=== PATIENT | female | born 1995 | race Caucasian/White ===

== ENCOUNTER 2017-04-21 12:05 | Inpatient (IN) | payer BC ==
[~2017-04-21] VITALS: Ht 154.9 cm; Wt 53.5 kg
[2017-04-21 12:22] VITALS: BP 124/75
--- NOTE | 2017-04-21 14:30 | NUR ---
Patient ambulated to bed 6. RN evaluating patient at bedside.
--- NOTE | 2017-04-21 14:38 | NUR ---
PT BIB BOTHER WITH C/O RIGHT SIDED CP RADIATING TO THE BACK 06/01 NO TRAUMA; TOOK EXCEDRIN X 2 WITH SLIGHT RELIEF 01/30 SHARP;PT FEELS NAUSEATED BUT DENIE VOMITTING;SKIN IS PINK/WARM/DRY; AAOX4 WITH EVEN AND STEADY GAIT; LUNGS CLEAR BL; HR EVEN AND REGULAR; PT DENIES ANY FEVER, CP, SOB, OR COUGH AT THIS TIME; PATIENT STATES PAIN OF /10 AT THIS TIME;PATIENT POSITIONED FOR COMFORT; HOB ELEVATED; BEDRAILS UP X2; BED DOWN.
[2017-04-21 15:06] LABS: HEMATOCRIT 41.2 % (36-48); HEMOGLOBIN 13.6 g/dL (12.0-16.0); MEAN CORPUSCULAR HEMOGLOBIN 29 pg (27-31); MEAN CORPUSCULAR HGB CONC 33 g/dL (33-37); MEAN CORPUSCULAR VOLUME 89 fL (80-94); PLATELET COUNT (AUTO) 152 K/uL (140-450); RED BLOOD CELL COUNT(AUTO) 4.63 MIL/uL (4.20-5.40); RED CELL DISTRIBUTION WIDTH 11.9 % (11.6-13.7); WHITE BLOOD COUNT (AUTO) 15.8 K/uL (4.5-11.0)
[2017-04-21 15:10] LABS: ANION GAP 12.9 (8-16); CALCIUM 9.1 mg/dL (8.5-10.1); CARBON DIOXIDE 24.9 mmol/L (21-32); CREATININE 0.7 mg/dL (0.6-1.3); POTASSIUM 3.8 mmol/L (3.5-5.1)
[2017-04-21 15:16] LABS: ALBUMIN 4.5 g/dL (3.4-5.0); TOTAL BILIRUBIN 0.8 mg/dL (0.0-1.0); TOTAL PROTEIN, SERUM 8.8 g/dL (6.4-8.2)
[2017-04-21 15:20] LABS: BAND % (MANUAL) 15 % (0-8); LYMPHOCYTES % (MANUAL) 5 % (20-46); MONOCYTES % (MANUAL) 7 % (5-12); NEUTROPHILS % (MANUAL) 73 (43-65); PLATELET ESTIMATE ADEQUATE
[2017-04-21 15:21] LABS: INR 1.1 (0.8-1.2); PARTIAL THROMBOPLASTIN TIME 27.6 secs (22-35.6); PROTHROMBIN TIME 11.1 secs (10.8-13.4)
--- NOTE | 2017-04-21 15:24 | NUR ---
PT RESTING ON BED;NO ACUTE DISTRESS NOTED;WILL CONTINUE TO MONITOR PT.
[2017-04-21 15:41] LABS: D-DIMER < 100 ng/ml (0-400)
--- NOTE | 2017-04-21 16:32 | NUR ---
PT CRYING C/O BACK PAIN;POSITION PT TO COMFORTABLE POSITION;WILL NOTIFY ER MD.
[2017-04-21] MEDS ORDERED: KETOROLAC 30 MG/ML VIAL IVP ONE (16:35)
[2017-04-21 16:36] LABS: FREE T4 (FREE THYROXINE) 1.29 ng/dL (0.76-1.46); THYROID STIMULATING HORMONE 0.85 uIU/mL (0.34-3.74)
[2017-04-21] MEDS ORDERED: KETOROLAC 30 MG/ML VIAL ONE (16:42)
[2017-04-21] MEDS ORDERED: NACL 0.9% 2,000 ML IV ONE (16:45)
[2017-04-21] MEDS ORDERED: ONDANSETRON 4 MG/2 ML VIAL IVP PRN (16:55)
[2017-04-21] MEDS ORDERED: MORPHINE SULFATE 2 MG/ML SYR IVP PRN (16:55)
[2017-04-21] MEDS ORDERED: LORazepam 2 MG/ML VIAL IVP PRN (16:55)
--- NOTE | 2017-04-21 17:10 | NUR ---
WENT TO CT SCAN ACCOMPANIED BY TECH.
--- NOTE | 2017-04-21 17:20 | NUR ---
BACK FROM CT SCAN ACCOMPANIED BY ROSENDO.
[2017-04-21 17:30] LABS: APPEARANCE,URINE HAZY (CLEAR); BILIRUBIN,URINE NEGATIVE (NEGATIVE); BLOOD, URINE 2+ (NEGATIVE); COLOR,URINE YELLOW (YELLOW); LEUKOCYTE ESTERASE ,URINE NEGATIVE (NEGATIVE); NITRITE, URINE NEGATIVE (NEGATIVE); PROTEIN,URINE NEGATIVE (NEGATIVE); UGLUCOSE NEGATIVE (NEGATIVE)
[2017-04-21 17:36] LABS: AMPHETAMINE, URINE NEG. ng/ml (NEG <=1000); BARBITURATE, URINE NEG. ng/ml (NEG <=200); BENZODIAZEPINE, URINE NEG. ng/mL (NEG <=200); CANNABINOID, URINE POS. ng/mL (NEG <=50); COCAINE, URINE NEG. ng/mL (NEG <=300); OPIATE, URINE NEG. ng/mL (NEG <=2000); PHENCYCLIDINE SCREEN,URINE NEG. ng/mL (NEG <=25)
[2017-04-21 17:38] LABS: BACTERIA,URINE FEW /HPF (None Seen); WBC,URINE 0-3 /HPF (0-5)
[2017-04-21 17:39] LABS: MUCUS,URINE 2+ /LPF (None Seen)
--- NOTE | 2017-04-21 17:44 | NUR ---
Patient will be admitted to care of DR JORGENSEN. Admited to TELE. Will go to room 123 A. Belongings list completed. Report to SHMUEL TEJADA.
--- NOTE | 2017-04-21 18:00 | NUR ---
PT ON UNIT. NO S/S OF ACUTE DISTRESS. AAOX4. IV SITE PATENT AND INTACT. PT DENIES PAIN AT THIS TIME. FATHER AT BEDSIDE. SKIN INTACT. PT ORIENTED TO ROOM. CALL LIGHT WITHIN REACH. SAFETY MEASURES ENSURED. WILL CONTINUE TO MONITOR.
[2017-04-21 18:10] VITALS: BP 104/59
--- NOTE | 2017-04-21 19:28 | NUR ---
ENDORSED PLAN OF CARE TO NURSE AT PT BEDSIDE. NO S/S OF ACUTE DISTRESS NOTED.
--- NOTE | 2017-04-21 19:30 | NUR ---
RECEIVED PT AWAKE PRESENTLY EATING DINNER, TOLERATING WELL, VITAL SIGNS TAKEN, ST ON TELE, DENIES CHEST PAIN BUT COMPLAINING OF BACK PAIN, WILL MEDICATE PRN, PLAN OF CARE DISCUSSED, SAFETY MEASURES IN PLACE, FATHER AT BEDSIDE, CALL LIGHT WITHIN REACH.
[2017-04-21] MEDS: HYDROcodone/APAP 5/325 MG 1 TAB TAB PO PRN (19:51)
[2017-04-21 20:00] VITALS: BP 109/68
[2017-04-21] MEDS: SIMVASTATIN 10 MG TAB PO SCH (20:03)
[2017-04-21] MEDS: NACL 0.9% 500 ML IV SCH (20:05)
[2017-04-21 20:08] LABS: CHOL/HDL RATIO 2.4 (1-4.5)
--- NOTE | 2017-04-21 20:30 | NUR ---
IVF OF NS AT 50ML/H STARTED, DUE ZOCOR GIVEN WITH EDUCATION PROVIDED, ALL NEEDS ATTENDED.
[2017-04-21] MEDS: ACETAMINOPHEN 325 MG TAB PO PRN (23:40)
--- NOTE | 2017-04-21 23:40 | NUR ---
PT SLEEPING, EASILY AROUSABLE, VITAL SIGNS TAKEN, TEMP-100.3, ST ON TELE, DENIES CHEST PAIN, PAGED DR MUNOZ WITH NEW ORDERS, MEDICATED WITH TYLENOL PO, COOLING MEASURES INITIATED, CONTINUE TO MONITOR CLOSELY.
[2017-04-22] VITALS: BP 103/67
[2017-04-22 04:00] VITALS: BP 97/50
--- NOTE | 2017-04-22 04:30 | NUR ---
PT SLEEPING, EASILY AROUSABLE, VITAL SIGNS STABLE, TEMP-99.6, DENIES ANY BACK OR CHEST PAIN, COMPLAINING OF PAIN TO IV SITE, NEW IV LINE STARTED ON RT HAND GAUGE 22 WITH GOOD BLOOD RETURN, MONITORED CLOSELY.
[2017-04-22] MEDS: NACL 0.9% 500 ML IV SCH (05:10)
--- NOTE | 2017-04-22 06:30 | NUR ---
PT AWAKE USING HER CELL PHONE AT THIS TIME, NO SIGNS OF DISTRESS, DENIES ANY PAIN, IVF INFUSING WELL, MONITORED CLOSELY.
[2017-04-22] MEDS: ACETAMINOPHEN 325 MG TAB PO PRN ×3 (06:50→21:11)
--- NOTE | 2017-04-22 06:53 | NUR ---
TEMP RECHECKED WITH 100.7, DR KAPADIA MADE AWARE, TYLENOL PO GIVEN, MONITORED CLOSELY.
--- NOTE | 2017-04-22 07:08 | NUR ---
PATIENT HAS BEEN SCREENED AND CATEGORIZED MODERATE NUTRITION RISK. PATIENT WILL BE SEEN WITHIN 3-5 DAYS OF ADMISSION. 04/24/17-04/26/17 CHULA CUNNINGHAM MS, RDN
--- NOTE | 2017-04-22 07:25 | NUR ---
PT AWAKE, NO SIGNS OF DISTRESS, REPORT GIVEN TO RN CARLA FOR CONTINUITY OF CARE.
--- NOTE | 2017-04-22 07:30 | NUR ---
RECEIVED ON BED AAOX4. NO SOB NOTED. NO C/O PAIN AT THIS TIME. IV TO RT HAND PATENT AND INTACT. CHEST CLEAR. ABDOMEN SOFT, BOWEL SOUNDS RESENT. NO EDEMA NOTED. INSTRUCTED PT TO CALL FOR ASSISTANCE, CALL LIGHT WITHIN REACH. PT VERBALIZED UNDERSTANDING.
[2017-04-22 07:45] LABS: HEMATOCRIT 36.4 % (36-48); HEMOGLOBIN 12.2 g/dL (12.0-16.0); MEAN CORPUSCULAR HEMOGLOBIN 30 pg (27-31); MEAN CORPUSCULAR HGB CONC 34 g/dL (33-37); MEAN CORPUSCULAR VOLUME 90 fL (80-94); PLATELET COUNT (AUTO) 127 K/uL (140-450); RED BLOOD CELL COUNT(AUTO) 4.07 MIL/uL (4.20-5.40); RED CELL DISTRIBUTION WIDTH 12.2 % (11.6-13.7); WHITE BLOOD COUNT (AUTO) 15.8 K/uL (4.5-11.0)
[2017-04-22 07:56] LABS: ANION GAP 15.9 (8-16); CALCIUM 8.2 mg/dL (8.5-10.1); CARBON DIOXIDE 19.8 mmol/L (21-32); CREATININE 0.6 mg/dL (0.6-1.3); POTASSIUM 3.7 mmol/L (3.5-5.1)
[2017-04-22 08:00] VITALS: BP 98/54
[2017-04-22 08:00] LABS: MAGNESIUM 1.8 mg/dL (1.8-2.4); PHOSPHORUS 2.8 mg/dL (2.5-4.9)
[2017-04-22 08:59] LABS: BAND % (MANUAL) 7 % (0-8); LYMPHOCYTES % (MANUAL) 6 % (20-46); MONOCYTES % (MANUAL) 3 % (5-12); NEUTROPHILS % (MANUAL) 84 (43-65); PLATELET ESTIMATE SLIGHTLY DECREASED
[2017-04-22] MEDS: LISINOPRIL 5 MG TAB PO SCH (09:00)
[2017-04-22] MEDS: ASPIRIN 325 MG TABEC PO SCH ×2 (09:00→09:48)
[2017-04-22] MEDS: METOPROLOL 25 MG TAB PO SCH (09:49)
[2017-04-22] MEDS ORDERED: ECOTRIN 81 MG TABEC PO SCH (09:55)
--- NOTE | 2017-04-22 09:55 | NUR ---
PT AMBULATING TO THE BATHROOM WITH STANDBY ASSIST. ACTIVITY TOLERATED WELL.
[2017-04-22] MEDS: HYDROcodone/APAP 5/325 MG 1 TAB TAB PO PRN ×2 (11:41→19:41)
[2017-04-22 12:00] VITALS: BP 104/61
--- NOTE | 2017-04-22 12:00 | NUR ---
KEPT PT NPO FOR ULTRASOUND OF ABDOMEN AFTER 3PM TODAY. PT MADE AWARE, VERBALIZED UNDERSTANDING.
[2017-04-22] MEDS ORDERED: CALCIUM CARB 600 MG TAB PO SCH (12:55)
[2017-04-22] MEDS: NACL 0.9% 1,000 ML IV SCH ×2 (14:10→22:55)
[2017-04-22 16:00] VITALS: BP 99/60
--- NOTE | 2017-04-22 16:25 | NUR ---
ULTRASOUND OF ABDOMEN ON GOING AT THE BEDSIDE.
--- NOTE | 2017-04-22 19:10 | NUR ---
ECHO ON GOING AT THE BEDSIDE. PT STABLE. NO COMPLAINTS MADE. WILL ENDORSE TO NEXT SHIFT NURSE FOR CONTINUITY OF CARE.
--- NOTE | 2017-04-22 19:15 | NUR ---
RECEIVED PT ON BED, ECHO ON-GOING, NO SIGNS OF DISTRESS, WILL FOLLOW UP.
--- NOTE | 2017-04-22 19:41 | NUR ---
VITAL SIGNS STABLE, ST ON TELE, DENIES CHEST PAIN BUT COMPLAINING OF BACK PAIN, TEMP-100.3, MEDICATED PRN WITH NORCO, ENCOURAGE TO DRINK A LOT OF FLUIDS TOLERATED, COMPLIANT, COOLING MEASURES INITIATED, RESUMED IVF OF NS @ 100 ML/H, FATHER AT BEDSIDE, CALL LIGHT WITHIN REACH.
[2017-04-22 20:00] VITALS: BP 97/64
[2017-04-22] MEDS: SIMVASTATIN 10 MG TAB PO SCH (21:07)
--- NOTE | 2017-04-22 21:15 | NUR ---
TEMP RECHECKED-100.4, TYLENOL PO GIVEN, CONTINUE COOLING MEASURES, MONITORED CLOSELY.
[2017-04-23] VITALS: BP 95/51
--- NOTE | 2017-04-23 | NUR ---
PT SLEEPING, EASILY AROUSABLE, VITAL SIGNS TAKEN, BP ON THE LOW SIDE BUT STABLE, TEMP-99.4, DENIES ANY PAIN, IVF INFUSING WELL, CONTINUE TO MONITOR CLOSELY.
[2017-04-23] MEDS: ACETAMINOPHEN 325 MG TAB PO PRN (03:46)
[2017-04-23] MEDS: NACL 0.9% 1,000 ML IV SCH ×3 (03:48→17:20)
[2017-04-23 04:00] VITALS: BP 90/54
--- NOTE | 2017-04-23 04:00 | NUR ---
PT AWAKE, VITAL SIGNS TAKEN, TEMP-100.5, ST ON TELE-116, MEDICATED WITH TYLENOL PO, COOLING MEASURES DONE, MONITORED CLOSELY.
--- NOTE | 2017-04-23 05:30 | NUR ---
TEMP RECHECKED WITH 99.4, DENIES ANY PAIN, IVF INFUSING WELL, MONITORED CLOSELY.
--- NOTE | 2017-04-23 07:15 | NUR ---
PT AWAKE, NO SIGNS OF DISTRESS, REPORT GIVEN TO RN CARLA FOR CONTINUITY OF CARE.
[2017-04-23 07:20] LABS: HEMATOCRIT 33.5 % (36-48); HEMOGLOBIN 11.4 g/dL (12.0-16.0); MEAN CORPUSCULAR HEMOGLOBIN 30 pg (27-31); MEAN CORPUSCULAR HGB CONC 34 g/dL (33-37); MEAN CORPUSCULAR VOLUME 88 fL (80-94); PLATELET COUNT (AUTO) 118 K/uL (140-450); RED BLOOD CELL COUNT(AUTO) 3.82 MIL/uL (4.20-5.40); RED CELL DISTRIBUTION WIDTH 12.1 % (11.6-13.7); WHITE BLOOD COUNT (AUTO) 14.9 K/uL (4.5-11.0)
--- NOTE | 2017-04-23 07:30 | NUR ---
RECEIVED ON BED AAOX4. NO SOB NOTED. NO C/O PAIN AT THIS TIME. IV TO RT HAND PATENT AND INTACT. CHEST CLEAR. ABDOMEN SOFT, BOWEL SOUNDS PRESENT. NO EDEMA NOTED. INSTRUCTED PT TO CALL FOR ASSISTANCE, CALL LIGHT WITHIN REACH. PT VERBALIZED UNDERSTANDING.
[2017-04-23 07:44] LABS: ANION GAP 14.9 (8-16); CALCIUM 7.9 mg/dL (8.5-10.1); CARBON DIOXIDE 19.8 mmol/L (21-32); CREATININE 0.6 mg/dL (0.6-1.3); POTASSIUM 3.7 mmol/L (3.5-5.1)
[2017-04-23 08:00] VITALS: BP 101/65
[2017-04-23 08:23] LABS: BAND % (MANUAL) 13 % (0-8); LYMPHOCYTES % (MANUAL) 7 % (20-46); MONOCYTES % (MANUAL) 9 % (5-12); NEUTROPHILS % (MANUAL) 71 (43-65); PLATELET ESTIMATE ADEQUATE
--- NOTE | 2017-04-23 08:30 | NUR ---
PT C/O PAIN UPON SWALLOWING FOODAND WATER. NOTED WHITE SPOTS/AREAS AT THE BACK OF UVULA. DR. NEGRETE (RESIDENT) NOTIFIED.
[2017-04-23] MEDS: LISINOPRIL 5 MG TAB PO SCH (09:00)
--- NOTE | 2017-04-23 09:00 | NUR ---
PT FOR CT ABDOMEN, NPO STARTED ORDERED. PT VERBALIZED UNDERSTANDING.
[2017-04-23] MEDS: METOPROLOL 25 MG TAB PO SCH (09:19)
[2017-04-23] MEDS: ECOTRIN 81 MG TABEC PO SCH (09:20)
[2017-04-23 12:00] VITALS: BP 96/58
--- NOTE | 2017-04-23 12:00 | NUR ---
PT WHEELED TO CT DEPT IN STABLE CONDITION. NPO MAINTAINED.
[2017-04-23] MEDS: HYDROcodone/APAP 5/325 MG 1 TAB TAB PO PRN ×2 (13:54→23:38)
--- NOTE | 2017-04-23 14:45 | NUR ---
STREP THROAT SPECIMEN COLLECTED AND SENT TO LAB.
[2017-04-23 16:00] VITALS: BP 100/56
--- NOTE | 2017-04-23 18:00 | NUR ---
INSTRUCTED PT NPO POST MIDNIGHT FOR PLANNED PROCEDURE TOMORROW BY DR. OLIVO. PT AND FAMILY AT THE BEDSIDE VERBALIZED UNDERSTANDING. PT'S FATHER STATED THE PT WILL SIGN THE CONSENT TOMORROW MORNING WHEN DR. OLIVO COMES.
--- NOTE | 2017-04-23 19:10 | NUR ---
NOTIFIED DR. OLIVO REGARDING PT'S STREP THROAT POSITIVE RESULT. NEW ORDERS GIVEN. JENN RN FIRE PATROLLER MADE AWARE OF PLANNED SURGERY CANCELLED. PT AND PT'S FATHER AWARE, VERBALIZED UNDERSTANDING. ENDORSED TO NEXT SHIFT NURSE FOR CONTINUITY OF CARE.
--- NOTE | 2017-04-23 19:15 | NUR ---
RECEIVED PT AWAKE, VITAL SIGNS STABLE, AFEBRILE, DENIES ANY PAIN, NO DIFFICULTY BREATHING NOTED, PLAN OF CARE DISCUSSED, WILL RESUMED ON CLEAR LIQUID DIET, SAFETY MEASURES IN PLACE, CALL LIGHT WITHIN REACH.
[2017-04-23 20:00] VITALS: BP 96/58
[2017-04-23] MEDS: SIMVASTATIN 10 MG TAB PO SCH (20:34)
--- NOTE | 2017-04-23 21:12 | NUR ---
THROAT SWABBED AND SENT TO LAB FOR THROAT CULTURE, NO SOB NOTED, PT VERBALIZED ONLY HAVE THROAT DISCOMFORT WHEN SWALLOWING, MONITORED CLOSELY.
--- NOTE | 2017-04-23 23:44 | NUR ---
PT COMPLAINING OF BACK PAIN, VITAL SIGNS STABLE, TEMP-100.1, MEDICATED WITH NORCO, SLIGHT DISCOMFORT WHEN SWALLOWING BUT TOLERATED WELL, IVF INFUSING WELL, CONTINUE TO MONITOR CLOSELY.
[2017-04-24] VITALS: BP 107/69
[2017-04-24] MEDS: NACL 0.9% 1,000 ML IV SCH ×3 (01:20→11:15)
[2017-04-24 04:00] VITALS: BP 99/56
--- NOTE | 2017-04-24 04:00 | NUR ---
PT SLEEPING, EASILY AROUSABLE, VITAL SIGNS STABLE, AFEBRILE, DENIES ANY PAIN, NO DIFFICULTY OF BREATHING NOTED, IVF INFUSING WELL, MONITORED CLOSELY.
--- NOTE | 2017-04-24 06:00 | NUR ---
PT SLEEPING, NO SIGNS OF DISTRESS, IVF INFUSING WELL, MONITORED CLOSELY.
[2017-04-24 06:06] LABS: BASOPHILS # (AUTO) 0.1 K/uL (0.00-0.22); BASOPHILS % (AUTO) 0.9 % (0.0-2.0); EOSINOPHILS # (AUTO) 0.2 K/uL (0-0.4); EOSINOPHILS % (AUTO) 1.6 % (0.0-4.0); HEMATOCRIT 33.2 % (36-48); HEMOGLOBIN 11.4 g/dL (12.0-16.0); LYMPHOCYTES % (AUTO) 17.4 % (20.5-51.1); MEAN CORPUSCULAR HEMOGLOBIN 30 pg (27-31); MEAN CORPUSCULAR HGB CONC 34 g/dL (33-37); MEAN CORPUSCULAR VOLUME 88 fL (80-94); MONOCYTES # (AUTO) 1.4 K/uL (0.8-1.0); MONOCYTES % (AUTO) 12.1 % (1.7-9.3); NEUTROPHILS # (AUTO) 7.9 K/uL (1.8-7.7); PLATELET COUNT (AUTO) 125 K/uL (140-450); RED BLOOD CELL COUNT(AUTO) 3.77 MIL/uL (4.20-5.40); RED CELL DISTRIBUTION WIDTH 11.8 % (11.6-13.7); WHITE BLOOD COUNT (AUTO) 11.6 K/uL (4.5-11.0)
[2017-04-24 06:28] LABS: ANION GAP 15.8 (8-16); CALCIUM 8.1 mg/dL (8.5-10.1); CARBON DIOXIDE 21.1 mmol/L (21-32); CREATININE 0.6 mg/dL (0.6-1.3); POTASSIUM 3.9 mmol/L (3.5-5.1)
--- NOTE | 2017-04-24 07:25 | NUR ---
PT AWAKE, NO SIGNS OF DISTRESS, REPORT GIVEN TO RN KATIANA FOR CONTINUITY OF CARE.
--- NOTE | 2017-04-24 07:30 | NUR ---
REPORT RECEIVED FROM GETTER OPERATOR, PT SLEEPING QUIETLY, RESP EVEN UNLABORED ON ROOM AIR IN NAD, SKIN COLOR WNL, PT AROUSES EASILY TO VOICE, DENIES PAIN OR ANY IMMEDIATE NEEDS, PLAN OF CARE DISCUSSED, CALL WAYNE WITHIN REACH, SIDE RAILS UP, BED LOCKED IN LOW POSITION, WILL CONTINUE TO MONITOR.
[2017-04-24 08:00] VITALS: BP 94/54
--- NOTE | 2017-04-24 08:00 | NUR ---
GLUCOSE 73 PER AM LABS, APPLE JUICE GIVEN PT DRINKING WITHOUT PROBLEM. WILL RECHECK BLOOD SUGAR.
[2017-04-24] MEDS: ECOTRIN 81 MG TABEC PO SCH (08:34)
[2017-04-24] MEDS: HYDROcodone/APAP 5/325 MG 1 TAB TAB PO PRN (08:38)
--- NOTE | 2017-04-24 08:42 | NUR ---
FINGER STICK GLUCOSE 102 NOW, PT ENCOURAGED TO DRINK THROUGH OUT THE DAY, WILL CONTINUE TO MONTIOR
[2017-04-24] MEDS: METOPROLOL 25 MG TAB PO SCH (08:43)
[2017-04-24] MEDS: LISINOPRIL 5 MG TAB PO SCH (08:43)
[2017-04-24] MEDS ORDERED: AMOX-999 PO (10:22)
[2017-04-24] MEDS ORDERED: AMOX-1000 PO (10:56)
--- NOTE | 2017-04-24 12:25 | NUR ---
DC INSTRUCTION AND RX GIVEN AND EXPLAINED TO PT AND HER , PT VERBALIZED FULL UNDERSTANDING, PT TO F/U ON 04/[address] GONZALES, PT UP OUT OF BED WITHOUT PROBLEM, IV DC'D, CATH TIPINTACT, BLEEDING CONTROLLED, PT EATING LUNCH TRAY THEN DC HOME, WILL COTNINUE TO MONITOR
--- NOTE | 2017-04-24 12:41 | NUR ---
CM NOTE INITIAL REVIEW FAXED TO [employer] [phone] REF# [id number], ATTN: ROBERT WALL PH [phone] X [phone]. FAXED DISCHARGE INSTRUCTIONS TO [employer] [phone]
--- NOTE | 2017-04-24 12:50 | NUR ---
PT NOW C/O ITCHING AND RASH TO RIGHT FLANK, REDNESS AND RASH NOTED, DR NEGRETE NOTIFIED.
--- NOTE | 2017-04-24 13:20 | NUR ---
BENADRYL GIVEN PER ORDER FOR ITCHING AND RASH, PT DC HOME NOW, PT INSTRUCTED TO RETURN TO ER IF ANY WORSENING S/S OF ALLERGIC REACTION, PT VERBALIXED FULL UNDERSTANDING.
--- NOTE | 2017-04-26 12:54 | NUR ---
RECEIVED A CALL FROM KYE FROM [employer]. SHE GAVE AUTH FOR 3 DAYS, TELEMETRY LEVEL, FROM 04/21 TO 04/23, WITH DISCHARGE ON 04/24. AUTH NUMBER IS [id number]. THE PHONE FOR CECILIO VUONG IS [phone]. I LEFT A MESSAGE WITH LEHR OPERATORROSA.
== END 2017-04-24 13:20 | disposition home or self-care (01) | DRG 872 ==
LOC: MED 12:05 → MTU 16:54
PROVIDERS: ADMIT Family Medicine; ATTEND Family Medicine
DX: A41.9 Sepsis, unspecified organism (principal); K81.0 Acute cholecystitis; I42.9 Cardiomyopathy, unspecified; J02.0 Streptococcal pharyngitis; J02.9 Acute pharyngitis, unspecified; F12.10 Cannabis abuse, uncomplicated; L30.9 Dermatitis, unspecified; E83.51 Hypocalcemia
CPT/HCPCS: 36415; 71010; 71275; 74160; 76700; 80048; 80053; 80305; 81001; 81025; 82948; 83036; 83690; 83735; 83880; 84100; 84439; 84443; 84479; 84484; 85025; 85379; 85610; 85730; 86886; 86900; 86901; 87081; 93005; 96361; 96374; 99291; J0696; J1885; J7030; J7060; Q0092; Q0163; Q9967

== ENCOUNTER 2019-06-30 20:35 | Emergency (ER) | payer BC ==
[~2019-06-30] VITALS: Ht 157.5 cm; Wt 59.2 kg
[~2019-06-30 20:35] MED LIST: AMOX-1000 PO
[2019-06-30 20:43] VITALS: BP 143/77
--- NOTE | 2019-06-30 22:20 | NUR ---
PT TO ER BED 8, AMBULATORY
--- NOTE | 2019-06-30 22:27 | NUR ---
28/F PRESENTED TO ED C/O SORE THROAT [id number]. /10 PAIN. STATES N/V. NO DIARRHEA. STATES FELT WARM PRIOR TO ARRIVING TO ED. NO FEVER NOTED AT THIS TIME. NO COUGH PRESENT. PT STATES TAKING DAYQUIL AND NYQUIL OVER THE PAST 2 WEEKS FOR HOME TX BUT NO RELIEF. PAST MED HX BIPOLAR. RX LAMICTAL, TRILEPTAL. DENIES ALLERGIES. WILL CONTINUE TO MONITOR. FATHER AT BEDSIDE.
--- NOTE | 2019-06-30 23:24 | NUR ---
PT LAYING IN BED NO SIGNS OF DISTRESS. FATHER AT BEDSIDE. WILL CONTINUE TO MONITOR.
--- NOTE | 2019-07-01 00:13 | NUR ---
PT RESTING IN BED. NO SIGNS OF DISTRESS. VSS.
--- NOTE | 2019-07-01 00:29 | NUR ---
DR JORGENSEN EXAMINING PT AT THIS TIME
[2019-07-01] MEDS ORDERED: KETOROLAC 15 MG/ML VIAL IM ONE (00:50)
[2019-07-01] MEDS ORDERED: DEXAMETHASONE 4 MG/ML VIAL PO ONE (00:50)
--- NOTE | 2019-07-01 01:13 | NUR ---
STREP SWAB COLLECTED
[2019-07-01 03:34] VITALS: BP 108/64
--- NOTE | 2019-07-01 03:34 | NUR ---
Patient discharged with v/s stable. Written and verbal after care instructions given and explained. Patient verbalized understanding. Ambulatory with steady gait. All questions addressed prior to discharge. Advised to follow up with PMD.
== END 2019-07-01 03:34 | disposition home or self-care (01) ==
LOC: MED 20:35
DX: J02.9 Acute pharyngitis, unspecified (principal); F31.9 Bipolar disorder, unspecified; Z79.2 Long term (current) use of antibiotics
CPT/HCPCS: 86308; 87081; 96372; 99283; J1100; J1885